=== PATIENT | female | born 1985 | race Two or more races ===

== ENCOUNTER 2022-09-02 12:08 | Emergency (ER) | payer MEDICAID, OTHER ==
[~2022-09-02] VITALS: Ht 157.5 cm; Wt 65.6 kg
[2022-09-02] MEDS ORDERED: LIDOCAINE 1% HCL (LOCAL ANESTH.) INJ 20ML MDV ID ONE (15:30)
[2022-09-02] MEDS ORDERED: IBUPROFEN 600 MG TAB PO ONE (15:30)
[2022-09-02] MEDS ORDERED: TETANUS-DIPTH-ACEL PERTUSSIS 0.5ML SYR Tdap IM ONE (15:30)
[2022-09-02] MEDS ORDERED: LORazepam 0.5 MG TAB PO STA (16:48)
[2022-09-02] MEDS ORDERED: NEOMYCIN-BACITRACIN-POLYM 15GM TOP OINT TOP STA (16:49)
[2022-09-02] MEDS ORDERED: CEPH-510 PO (16:52)
[2022-09-02] MEDS ORDERED: IBUP600T28 PO (16:52)
[2022-09-02 17:00] VITALS: BP 120/68
== END 2022-09-02 17:45 | disposition home or self-care (01) ==
LOC: ER 12:08
DX: S61.411A Laceration without foreign body of right hand, initial encounter (principal); X58.XXXA Exposure to other specified factors, initial encounter; Y93.89 Activity, other specified; Y92.89 Other specified places as the place of occurrence of the external cause; Y99.8 Other external cause status
CPT/HCPCS: 12001; 73130; 90471; 90715; 99284; J2001